=== PATIENT | female | born 1985 ===

== ENCOUNTER 2021-05-03 16:29 | Emergency (ER) | payer MEDICAID ==
[2021-05-03] MEDS ORDERED: Proparacaine 0.5% Opth 15 ML BOT ONE (17:06)
[2021-05-03] MEDS ORDERED: Fluorescein Opthalmic Strip ONE (17:06)
[2021-05-03] MEDS ORDERED: Ibuprofen 800 MG TAB ONE (17:19)
== END 2021-05-03 17:40 | disposition home or self-care (01) ==
LOC: NAV ERS 16:29
DX: S05.91XA Unspecified injury of right eye and orbit, initial encounter (principal); J45.909 Unspecified asthma, uncomplicated; K21.9 Gastro-esophageal reflux disease without esophagitis; I25.2 Old myocardial infarction; I10 Essential (primary) hypertension; F17.210 Nicotine dependence, cigarettes, uncomplicated; Z79.899 Other long term (current) drug therapy; W25.XXXA Contact with sharp glass, initial encounter
CPT/HCPCS: 99283